=== PATIENT | male | born 1940 | race Caucasian/White ===

== ENCOUNTER 2017-08-07 17:51 | Emergency (ER) | payer OTHER ==
[~2017-08-07] VITALS: Ht 157.5 cm; Wt 67.1 kg
[2017-08-07 18:10] VITALS: Ht 157.5 cm; Wt 67.1 kg
[2017-08-07 23:26] VITALS: BP 145/84
== END 2017-08-07 23:26 | disposition home or self-care (01) ==
LOC: ED 17:51
DX: B34.9 Viral infection, unspecified (principal); R07.89 Other chest pain